=== PATIENT | female | born 1955 | race Caucasian/White ===

== ENCOUNTER 2017-11-03 12:44 | Emergency (ER) | payer OTHER ==
[~2017-11-03] VITALS: Ht 170.2 cm; Wt 63.0 kg
[2017-11-03 12:51] VITALS: BP 137/63; PULSE 62; RESP 16; TEMP 98.3; O2SAT 98
[2017-11-03] MEDS ORDERED: ASPI81CH6 CHEW (12:56)
--- NOTE | 2017-11-03 13:06 | PD ---
HPI Chief Complaint: Injury Time Seen by Provider: 12:56 Travel History International Travel<30 days: No Contact w/Intl Traveler<30days: No Traveled to known affect area: No History of Present Illness HPI 62-year-old female presents emergency department for evaluation of right foot and ankle pain after injury that occurred 10 days ago. Patient states that she was working out when she accidentally landed on the lateral aspect of her foot and ankle resulting in immediate pain. Patient says she was able to walk on the ankle however, continues to have pain and would like evaluation today. Patient says her pain is 5/10, worse with pointing the toes and inversion of the ankle. No radiation of pain. Patient points to the anterolateral ankle, lateral malleolus and over the fourth and fifth metatarsal region. She says the area has been bruised as well. She is concerned because she is due to leave the area in 2 weeks for several months and is concerned about the drive. PFSH Past Medical History Medical History: Denies Significant Hx Diminished Hearing: No Immunizations Current: Yes Tetanus Vaccination: > 5 Years Influenza Vaccination: Yes ?: Not Menopausal: Yes Past Surgical History Gynecologic Surgery: Yes (BREAST REDUCTION) Hysterectomy: Yes Social History Alcohol Use: Yes (3XS WEEK) Tobacco Use: No Substance Use: No Allergies-Medications (Allergen,Severity, Reaction): Coded Allergies: No Known Allergies (Unverified , 11/03/17) Reported Meds & Prescriptions Reported Meds & Active Scripts Active Reported Aspirin Low Dose (Aspirin) 81 Mg Chew 81 Mg CHEW DAILY Review of Systems Except as stated in HPI: all other systems reviewed are Neg Physical Exam Narrative GENERAL: Well-nourished, well-developed patient. SKIN: Focused skin assessment warm/dry. HEAD: Normocephalic. EYES: No scleral icterus. No injection or drainage. NECK: Supple, trachea midline. No JVD or lymphadenopathy. CARDIOVASCULAR: Regular rate and rhythm without murmurs, gallops, or rubs. RESPIRATORY: Breath sounds equal bilaterally. No accessory muscle use. MUSCULOSKELETAL: No cyanosis, or edema. Right foot-TTP over dorsal aspect of fourth and fifth metatarsals, mild ecchymosis, no deformities. Neurovascular intact Right ankle-tenderness palpation lateral malleolus with accompanying ecchymosis , ecchymosis over medial aspect of ankle. No obvious laxity. Neurovascular intact BACK: Nontender without obvious deformity. No CVA tenderness. Data Data Last Documented VS Vital Signs Date Time Temp Pulse Resp B/P (MAP) Pulse Ox O2 Delivery O2 Flow Rate FiO2 11/03/17 12:51 98.3 62 16 137/63 (87) 98 Orders Orders Ankle, Complete ([id number]) (11/03/17 ) Foot, Complete ([id number]) (11/03/17 ) Support Splint (11/03/17 14:06) Crutches (11/03/17 14:06) MDM Medical Decision Making Medical Screen Exam Complete: Yes Emergency Medical Condition: Yes Differential Diagnosis Right ankle contusion, bursitis, cellulitis, fracture, osteonecrosis, avascular necrosis, sprain, strain Narrative Course 62-year-old female presents emergency department for evaluation of right foot and ankle pain after injury that occurred 10 days ago. Patient states that she was working out when she accidentally landed on the lateral aspect of her foot and ankle resulting in immediate pain. Patient says she was able to walk on the ankle however, continues to have pain and would like evaluation today. Patient says her pain is 5/10, worse with pointing the toes and inversion of the ankle. No radiation of pain. Patient points to the anterolateral ankle, lateral malleolus and over the fourth and fifth metatarsal region. She says the area has been bruised as well. She is concerned because she is due to leave the area in 2 weeks for several months and is concerned about the drive. Vital signs stable. Patient is ambulatory in the emergency department. His exam findings are encouraging however, she does have pain to the lateral aspect of the ankle. She is otherwise neurovascular intact. Last Impressions Foot X-Ray 11/03/17 0000 Signed Impressions: Service Date/Time: Friday, November 03, 2017 13:09 - CONCLUSION: Negative for acute process Neri Rojas MD FACR Ankle X-Ray 11/03/17 0000 Signed Impressions: Service Date/Time: Friday, November 03, 2017 13:09 - CONCLUSION: Fracture distal tip of the fibula. Neri Rojas MD FACR Patient will be placed in a stirrup splint. She is advised to follow-up with orthopedic physician within 1 week. Tylenol or Motrin per package instructions for her pain. Diagnosis Primary Impression: Ankle fracture Qualified Codes: S82.891A - Other fracture of right lower leg, initial encounter for closed fracture Referrals: Heriberto Wang MD, Jessica Isabel DPM [place], Laura M. DPM Orthopedist [employer] Additional Instructions: Use ice or heat for symptom relief. If no contraindications, you may use Tylenol or Motrin per package instructions for your pain. Elevate the joint above the heart to reduce swelling. You may use compression with Uziel wrap or similar to reduce swelling. If symptoms persist or worsen, return to the emergency department. Follow up with your primary care physician within 2 days. Weightbearing as tolerated. You may remove the ankle splint to shower but leave on until you are evaluated by an orthopedist. Disposition: 01 DISCHARGE HOME Condition: Stable Aliya Knox November 03, 2017 13:06
--- NOTE | 2017-11-03 13:45 | RADRPT ---
EXAM DATE/TIME: 11/03/2017 13:09 [facility] COMPARISON: No previous studies available for comparison. INDICATIONS : Right foot pain, rolled foot exercising. MEDICAL HISTORY : None. SURGICAL HISTORY : bunion surgery ENCOUNTER: Initial ACUITY: 2 weeks PAIN SCORE: 5/10 LOCATION: Right lateral foot FINDINGS: Three view examination of the right foot demonstrates no soft tissue swelling, dislocation, or fractu re. Previous surgery distal first metatarsal The tarsal bones appear intact. The interphalangeal an d metatarsophalangeal joints are intact. The calcaneus is intact. Bony mineralization is normal. CONCLUSION: Negative for acute process Neri Rojas MD FACR on November 03, 2017 at 13:41 Board Certified Radiologist. This report was verified electronically.
--- NOTE | 2017-11-03 13:46 | RADRPT ---
EXAM DATE/TIME: 11/03/2017 13:09 [facility] COMPARISON: No previous studies available for comparison. INDICATIONS : Right ankle pain, rolled ankle exercising. MEDICAL HISTORY : None. SURGICAL HISTORY : None. ENCOUNTER: Initial ACUITY: 2 weeks PAIN SCORE: 5/10 LOCATION: Right lateral ankle FINDINGS: Fracture distal tip of fibula. Ankle mortise and medial is intact. CONCLUSION: Fracture distal tip of the fibula. Neri Rojas MD FACR on November 03, 2017 at 13:43 Board Certified Radiologist. This report was verified electronically.
== END 2017-11-03 14:22 | disposition home or self-care (01) ==
LOC: PHEFT 12:44
DX: S82.891A Other fracture of right lower leg, initial encounter for closed fracture (principal); X58.XXXA Exposure to other specified factors, initial encounter
CPT/HCPCS: 29515; 73610; 73630; 99283; E0113